=== PATIENT | male | born 1960 | race Caucasian/White ===

== ENCOUNTER 2020-04-24 10:44 | Emergency (ER) | payer MEDICAID ==
[~2020-04-24] VITALS: Ht 180.3 cm; Wt 84.0 kg
[2020-04-24 10:48] VITALS: BP 199/134
[2020-04-24] MEDS ORDERED: LIDOCAINE HCL 1% 20ML VIAL (Pyxis) INJ INFIL ONE (11:15)
[2020-04-24] MEDS ORDERED: TETANUS, DIPHTHERIA, PERTUSSIS VAC/PF 0.5ML (>7YR OLD) IM ONE (11:15)
[2020-04-24] MEDS ORDERED: IBUPROFEN 600MG TABLET PO ONE (12:00)
== END 2020-04-24 14:56 | disposition home or self-care (01) ==
LOC: ER 11:27
DX: S61.213A Laceration without foreign body of left middle finger without damage to nail, initial encounter (principal); W26.8XXA Contact with other sharp object(s), not elsewhere classified, initial encounter; Y93.89 Activity, other specified; Y92.89 Other specified places as the place of occurrence of the external cause; Y99.8 Other external cause status
CPT/HCPCS: 12002; 90471; 90715; 99283; J3490

== ENCOUNTER 2020-05-09 09:36 | Emergency (ER) | payer MEDICAID ==
[~2020-05-09] VITALS: Ht 185.4 cm; Wt 84.0 kg
[2020-05-09 09:40] VITALS: BP 168/93
[2020-05-09] MEDS ORDERED: LISI2.5T47 PO (09:44)
[2020-05-09] MEDS ORDERED: ATOR10TA PO (09:44)
== END 2020-05-09 11:36 | disposition home or self-care (01) ==
LOC: ER 09:36
DX: Z48.00 Encounter for change or removal of nonsurgical wound dressing (principal)
CPT/HCPCS: 99281

== ENCOUNTER 2020-05-30 16:00 | Emergency (ER) | payer MEDICAID ==
[~2020-05-30] VITALS: Ht 180.3 cm; Wt 91.0 kg
[~2020-05-30 16:00] MED LIST: ATOR10TA PO; LISI2.5T47 PO
[2020-05-30 17:05] LABS: BASOPHILS % 0.9 % (0.0-2.0); EOSINOPHILS % 2.6 % (0.0-5.0); HEMATOCRIT. 42.7 % (42.0-52.0); HEMOGLOBIN. 14.4 g/dL (14.0-18.0); LYMPHOCYTES % 19.8 % (20.0-50.0); MEAN CORPUSCULAR HEMOGLOBIN 30.4 pg (28.0-32.0); MEAN CORPUSCULAR VOLUME 90.4 fL (80.0-94.0); MEAN PLATELET VOLUME 9.1 fl (7.4-10.4); MONOCYTES % 7.7 % (2.0-8.0); PLATELET 163 x1000/uL (130-400); RED BLOOD CELL COUNT 4.73 mill/uL (4.7-6.1); RED CELL DISTRIBUTION WIDTH 13.2 % (11.6-14.6)
[2020-05-30 17:15] LABS: CHLORIDE 108 mEq/L (98-107)
[2020-05-30 17:47] VITALS: BP 150/84
== END 2020-05-30 17:50 | disposition home or self-care (01) ==
LOC: ER 16:00
DX: I16.0 Hypertensive urgency (principal); R51 Headache; E78.00 Pure hypercholesterolemia, unspecified
CPT/HCPCS: 36415; 80053; 85025; 93005; 99285